=== PATIENT | male | born 1960 | race Caucasian/White ===

== ENCOUNTER 2017-01-23 09:19 | Emergency (ER) | payer SELFPAY ==
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
--- NOTE | 2017-01-23 10:27 | RADIOLOGY REPORT (SQ) ---
EXAM DESCRIPTION: CHEST PA/LAT COMPLETED DATE/TIME: 01/23/2017 10:19 am REASON FOR STUDY: pedal edema COMPARISON: None. EXAM PARAMETERS: NUMBER OF VIEWS: two views TECHNIQUE: Digital Frontal and Lateral radiographic views of the chest acquired. RADIATION DOSE: NA LIMITATIONS: none FINDINGS: LUNGS AND PLEURA: Mild chronic interstitial changes are present. There is no infiltrate o r effusion. There is no mass. MEDIASTINUM AND HILAR STRUCTURES: No masses or contour abnormalities. HEART AND VASCULAR STRUCTURES: Heart normal size. No evidence for failure. BONES: No acute findings. HARDWARE: None in the chest. OTHER: No other significant finding. IMPRESSION: Mild chronic changes with no acute cardiopulmonary disease. TECHNICAL DOCUMENTATION: JOB ID: [id number] [employer]- All Rights Reserved
[2017-01-23 11:01] LABS: ABSOLUTE LYMPHOCYTES (AUTO) 0.9 10^3/uL (0.5-4.7); ABSOLUTE MONOCYTES (AUTO) 0.5 10^3/uL (0.1-1.4); ABSOLUTE NEUT (AUTO) 1.5 10^3/uL (1.7-8.2); BASOPHILS % (AUTO) 0.5 % (0-2); EOSINOPHILS % (AUTO) 1.4 % (0-6); HEMATOCRIT 42.5 % (37.9-51.0); HEMOGLOBIN 15.3 g/dL (13.5-17.0); HGB HCT DIFFERENCE 3.4; LYMPHOCYTES % (AUTO) 30.3 % (13-45); MEAN CORPUSCULAR HEMOGLOBIN 38.3 pg (27.0-33.4); MEAN CORPUSCULAR HGB CONC 36.1 g/dL (32.0-36.0); MEAN CORPUSCULAR VOLUME 106 fl (80-97); RED BLOOD COUNT 4.01 10^6/uL (4.35-5.55); RED CELL DISTRIBUTION WIDTH 12.7 % (11.5-14.0); SEGMENTED NEUTROPHILS % (AUTO) 49.8 % (42-78)
[2017-01-23 11:05] LABS: APPEARANCE,URINE CLEAR; BILIRUBIN,URINE SMALL (NEGATIVE); GLUCOSE, URINE NEGATIVE (NEGATIVE); KETONES,URINE NEGATIVE (NEGATIVE); LEUKOCYTE ESTERASE,URINE NEGATIVE (NEGATIVE); NITRITE,URINE NEGATIVE (NEGATIVE); PROTEIN,URINE NEGATIVE (NEGATIVE); URINE SPECIFIC GRAVITY 1.025
[2017-01-23 11:09] LABS: ALANINE AMINOTRANSFERASE 54 U/L (21-72); ALBUMIN 3.8 g/dL (3.5-5.0); ALKALINE PHOSPHATASE 392 U/L (38-126); ANION GAP 9 (5-19); ASPARTATE AMINO TRANSFERASE 69 U/L (17-59); BILIRUBIN,TOTAL 1.7 mg/dL (0.2-1.3); BLOOD UREA NITROGEN 19 mg/dL (7-20); CARBON DIOXIDE 26 mmol/L (22-30); CHLORIDE 106 mmol/L (98-107); GLUCOSE 127 mg/dL (75-110); POTASSIUM 4.5 mmol/L (3.6-5.0); SODIUM 141.4 mmol/L (137-145); TOTAL PROTEIN 8.4 g/dL (6.3-8.2)
[2017-01-23 11:25] LABS: TROPONIN I < 0.012 ng/mL
[2017-01-23] MEDS ORDERED: IBUPROFEN 600 MG TABLET PO ONE (11:48)
[2017-01-23 12:00] VITALS: BP 174/78
== END 2017-01-23 12:03 | disposition home or self-care (01) ==
LOC: ER 09:19
DX: R60.0 Localized edema (principal); R74.8 Abnormal levels of other serum enzymes; M79.604 Pain in right leg; I10 Essential (primary) hypertension; F17.210 Nicotine dependence, cigarettes, uncomplicated; Z71.6 Tobacco abuse counseling
CPT/HCPCS: 36415; 71020; 80053; 81001; 83880; 84484; 85025; 99284

== ENCOUNTER 2017-07-11 11:06 | Observation (INO) | payer SELFPAY ==
[2017-07-11] MEDS ORDERED: NORMAL SALINE 1000 ML 1,000 ML IV ONE (11:12)
[2017-07-11 11:27] LABS: HEMATOCRIT 40.1 % (37.9-51.0); HEMOGLOBIN 14.2 g/dL (13.5-17.0); MEAN CORPUSCULAR HEMOGLOBIN 37.6 pg (27.0-33.4); MEAN CORPUSCULAR HGB CONC 35.4 g/dL (32.0-36.0); MEAN CORPUSCULAR VOLUME 106 fl (80-97); RED BLOOD COUNT 3.78 10^6/uL (4.35-5.55); RED CELL DISTRIBUTION WIDTH 12.7 % (11.5-14.0); WHITE BLOOD COUNT 4.5 10^3/uL (4.0-10.5)
[2017-07-11 11:29] LABS: INTERNATIONAL RATION (INR) 1.14; PROTHROMBIN TIME 15.3 SEC (11.4-15.4)
[2017-07-11 11:30] LABS: PARTIAL THROMBOPLASTIN TIME 34.9 SEC (23.5-35.8)
[2017-07-11 11:33] LABS: VENOUS BLOOD BASE EXCESS 3.8 mmol/L; VENOUS BLOOD HCO3 29.7 mmol/L (20-32); VENOUS BLOOD PCO2 49.8 mmHg (35-63); VENOUS BLOOD PH 7.39 (7.30-7.42)
[2017-07-11] MEDS ORDERED: NALOXONE HCL INJ/PF 0.4 MG/1 ML SDV IV ONE (11:43)
[2017-07-11] MEDS ORDERED: NALOXONE HCL INJ/PF 0.4 MG/1 ML SDV ONE (11:44)
[2017-07-11 11:48] LABS: ALANINE AMINOTRANSFERASE 37 U/L (21-72); ALBUMIN 3.5 g/dL (3.5-5.0); ALKALINE PHOSPHATASE 240 U/L (38-126); ASPARTATE AMINO TRANSFERASE 57 U/L (17-59); BILIRUBIN,DIRECT 1.4 mg/dL (0.0-0.4); BILIRUBIN,TOTAL 2.1 mg/dL (0.2-1.3); BLOOD UREA NITROGEN 21 mg/dL (7-20); CALCIUM 7.6 mg/dL (8.4-10.2); CARBON DIOXIDE 25 mmol/L (22-30); GLUCOSE 111 mg/dL (75-110); TOTAL PROTEIN 7.3 g/dL (6.3-8.2)
[2017-07-11 11:49] LABS: ALCOHOL 257 mg/dL (NONE DETECTED); CREATINE KINASE 54 U/L (55-170); LIPASE 317.8 U/L (23-300)
[2017-07-11 11:50] LABS: ANION GAP 10 (5-19); CHLORIDE 107 mmol/L (98-107); SODIUM 142.3 mmol/L (137-145)
[2017-07-11 11:54] LABS: ACETAMINOPHEN < 10 ug/mL (10-30); SALICYLATE < 1.0 mg/dL (2.0-20.0)
[2017-07-11 11:55] LABS: ABSOLUTE LYMPHOCYTES# (MANUAL) 1.8 10^3/uL (0.5-4.7); ABSOLUTE MONOCYTES # (MANUAL) 0.6 10^3/uL (0.1-1.4); ABSOLUTE NEUTROPHILS# (MANUAL) 1.9 10^3/uL (1.7-8.2); BAND NEUTROPHILS % (MANUAL) 2 % (3-5); BASOPHILS % (MANUAL) 2 % (0-2); EOSINOPHILS % (MANUAL) 1 % (0-6); LYMPHOCYTES % (MANUAL) 38 % (13-45); MONOCYTES % (MANUAL) 14 % (3-13); SEGMENTED NEUTROPHILS % (MAN) 41 % (42-78); TOTAL CELLS COUNTED 100
[2017-07-11] MEDS ORDERED: NALOXONE HCL INJ 2 MG/2 ML DISP.SYRIN ONE (11:55)
[2017-07-11 11:56] LABS: POTASSIUM 3.6 mmol/L (3.6-5.0)
[2017-07-11 11:58] LABS: PLATELET COMMENT DECREASED
[2017-07-11 11:59] LABS: NT PRO BNP 104 pg/mL (5-900); PLATELET COUNT 62 10^3/uL (150-450); TROPONIN I < 0.012 ng/mL
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
--- NOTE | 2017-07-11 12:03 | RADIOLOGY REPORT (SQ) ---
EXAM DESCRIPTION: CHEST SINGLE VIEW COMPLETED DATE/TIME: 07/11/2017 11:45 am REASON FOR STUDY: unresponsive COMPARISON: 01/23/2017 EXAM PARAMETERS: NUMBER OF VIEWS: One view. TECHNIQUE: Single frontal radiographic view of the chest acquired. RADIATION DOSE: NA LIMITATIONS: None. FINDINGS: LUNGS AND PLEURA: Mild chronic interstitial changes are seen. No acute infiltrate or pleu ral effusion. No mass. MEDIASTINUM AND HILAR STRUCTURES: No masses. Contour normal. HEART AND VASCULAR STRUCTURES: Heart normal in size. Normal vasculature. BONES: No acute findings. HARDWARE: None in the chest. OTHER: No other significant finding. IMPRESSION: Mild chronic lung changes with no acute cardiopulmonary disease. TECHNICAL DOCUMENTATION: JOB ID: [id number] [employer]- All Rights Reserved Reading location - IP/workstation name: [email or web address]
[2017-07-11 12:14] LABS: APPEARANCE,URINE CLEAR; BILIRUBIN,URINE NEGATIVE (NEGATIVE); COLOR,URINE STRAW; GLUCOSE, URINE NEGATIVE (NEGATIVE); KETONES,URINE NEGATIVE (NEGATIVE); LEUKOCYTE ESTERASE,URINE NEGATIVE (NEGATIVE); NITRITE,URINE NEGATIVE (NEGATIVE); PROTEIN,URINE NEGATIVE (NEGATIVE); URINE SPECIFIC GRAVITY 1.003
[2017-07-11] MEDS ORDERED: MAGNESIUM SULFATE/D5W 1 GM/100 ML RTUPB IV ONE (12:24)
[2017-07-11 12:30] LABS: URINE AMPHETAMINES SCREEN NEGATIVE; URINE BARBITURATES SCREEN NEGATIVE; URINE BENZODIAZEPINES SCREEN NEGATIVE; URINE COCAINE SCREEN NEGATIVE; URINE MARIJUANA (THC) SCREEN NEGATIVE; URINE METHADONE SCREEN NEGATIVE; URINE PHENCYCLIDINE SCREEN NEGATIVE
--- NOTE | 2017-07-11 12:45 | RADIOLOGY REPORT (SQ) ---
EXAM DESCRIPTION: CT HEAD WITHOUT COMPLETED DATE/TIME: 07/11/2017 12:31 pm REASON FOR STUDY: unresponsive cp COMPARISON: None. TECHNIQUE: Axial images acquired through the brain without intravenous contrast. Images reviewed wi th bone, brain and subdural windows. Additional sagittal and coronal reconstructions were generated. Images stored on PACS. All CT scanners at this facility use dose modulation, iterative reconstruction, and/or weight based d osing when appropriate to reduce radiation dose to as low as reasonably achievable (ALARA). [facility]: Dose Right [facility]: CareDose [facility]: Dose Right [facility]: Teradose 4D [facility]: [employer] RADIATION DOSE: CT Rad equipment meets quality standard of care and radiation dose reduction techniq ues were employed. CTDIvol: 53.2 mGy. DLP: 1097 mGy-cm. mGy. LIMITATIONS: None. FINDINGS: VENTRICLES: Normal size and contour. CEREBRUM: No masses. No hemorrhage. No midline shift. No evidence for acute infarction. Normal gra y/white matter differentiation. No areas of low density in the white matter. CEREBELLUM: No masses. No hemorrhage. No alteration of density. No evidence for acute infarction. EXTRAAXIAL SPACES: No fluid collections. No masses. ORBITS AND GLOBE: No intra- or extraconal masses. Normal contour of globe without masses. CALVARIUM: No fracture. PARANASAL SINUSES: No fluid or mucosal thickening. SOFT TISSUES: No mass or hematoma. OTHER: No other significant finding. IMPRESSION: NORMAL BRAIN CT WITHOUT CONTRAST. EVIDENCE OF ACUTE STROKE: No COMMENT: Pertinent findings on the imaging study reported as a CRITICAL RESULT to DELIA Pérez at12:30 on 07/11/2017. Category of Critical Result: CT code stroke Quality ID # [id number]: Final reports with documentation of one or more dose reduction techniques (e.g., Au tomated exposure control, adjustment of the mA and/or kV according to patient size, use of iterative reconstruction technique) TECHNICAL DOCUMENTATION: JOB ID: [id number] [employer]- All Rights Reserved Reading location - IP/workstation name: [email or web address]
--- NOTE | 2017-07-11 12:48 | RADIOLOGY REPORT (SQ) ---
EXAM DESCRIPTION: CTA CHEST COMPLETED DATE/TIME: 07/11/2017 12:31 pm REASON FOR STUDY: unresponsive cp COMPARISON: AP chest 07/11/2017 TECHNIQUE: CT scan of the chest performed using helical scanning technique with dynamic intravenous contrast injection. Images reviewed with lung, soft tissue and bone windows. Reconstructed coronal and sagittal MPR images reviewed. Additional 3 dimensional post-processing performed to develop Maximal Intensity Projection images (WA P). All images stored on PACS. All CT scanners at this facility use dose modulation, iterative reconstruction, and/or weight based d osing when appropriate to reduce radiation dose to as low as reasonably achievable (ALARA). [facility]: Dose Right [facility]: CareDose [facility]: Dose Right [facility]: Teradose 4D [facility]: [employer] CONTRAST TYPE AND DOSE: contrast/concentration: Isovue 370.00 mg/ml; Total Contrast Delivered: 77.0 ml; Total Saline Delivered: 102.0 ml Contrast bolus optimized for the pulmonary arteries. Not diagnostic for the aorta. RENAL FUNCTION: Creatinine 0.89 RADIATION DOSE: CT Rad equipment meets quality standard of care and radiation dose reduction techniq ues were employed. CTDIvol: 29.8 - 41.3 mGy. DLP: 1126 mGy-cm. . LIMITATIONS: None. FINDINGS: LUNGS AND PLEURA: Biapical bulla or blebs. No focal infiltrates. No pleural effusion. N o pneumothorax. Airway is patent. AORTA AND GREAT VESSELS: No aneurysm. Contrast bolus not optimized for the aorta. HEART: No pericardial effusion. No significant coronary artery calcifications. PULMONARY ARTERIES: No emboli visualized in the main pulmonary arteries or the segmental branches. HILAR AND MEDIASTINAL STRUCTURES: No identified masses or abnormal nodes. HARDWARE: None in the chest. UPPER ABDOMEN: Splenomegaly, varices along the GE junction and splenic hilum. Small liver. Stones i n the gallbladder. THYROID AND OTHER SOFT TISSUES: Bilateral gynecomastia. BONES: No acute bony changes 3D MIPS: Confirm above findings. OTHER: Results discussed with Dr. Montero, 1230 hours 07/11/2017 IMPRESSION: No acute findings COMMENT: Quality ID # [id number]: Final reports with documentation of one or more dose reduction techniques (e.g., Automated exposure control, adjustment of the mA and/or kV according to patient size, use of iterative reconstruction technique) TECHNICAL DOCUMENTATION: JOB ID: [id number] [employer]- All Rights Reserved Reading location - IP/workstation name: [email or web address]
[2017-07-11 14:41] LABS: FREE T4 (FREE THYROXINE) 1.22 ng/dL (0.78-2.19)
[2017-07-11 14:56] LABS: THYROID STIMULATING HORMONE 3.95 uIU/mL (0.47-4.68)
[2017-07-11 14:57] LABS: CREATINE KINASE MB 1.29 ng/mL (<4.55)
[2017-07-11 14:58] LABS: TROPONIN I < 0.012 ng/mL
[2017-07-11] MEDS: NORMAL SALINE 1000 ML 1,000 ML IV PRN ×2 (15:57→19:46)
[2017-07-11] MEDS ORDERED: THIAMINE HCL 100 MG in NORMAL SALINE 50 ML IV SCH (18:00)
[2017-07-11] MEDS ORDERED: (PENDING PHARMACY ID) (Spironolactone [Aldactone] 50 MG) PO SCH (20:30)
[2017-07-11 20:35] LABS: CREATINE KINASE MB 1.19 ng/mL (<4.55)
[2017-07-11 20:39] LABS: TROPONIN I < 0.012 ng/mL
[2017-07-11] MEDS ORDERED: SPIRONOLACTONE 25 MG TABLET PO ONE (21:00)
[2017-07-11] MEDS ORDERED: FOLIC ACID 1 MG TABLET PO ONE (21:00)
[2017-07-11] MEDS ORDERED: NADOLOL 40 MG TABLET PO ONE (21:30)
--- NOTE | 2017-07-11 22:34 | EKG REPORT ---
SEVERITY:- NORMAL ECG - SINUS RHYTHM : Confirmed by: Nadir Esquivel 11-Jul-2017 22:34:20
--- NOTE | 2017-07-11 22:34 | EKG REPORT ---
SEVERITY:- NORMAL ECG - SINUS RHYTHM : Confirmed by: Nadir Esquivel 11-Jul-2017 22:34:29
[2017-07-12 02:38] LABS: TROPONIN I < 0.012 ng/mL
[2017-07-12 06:22] LABS: ABSOLUTE LYMPHOCYTES (AUTO) 0.8 10^3/uL (0.5-4.7); ABSOLUTE MONOCYTES (AUTO) 0.5 10^3/uL (0.1-1.4); ABSOLUTE NEUT (AUTO) 1.7 10^3/uL (1.7-8.2); BASOPHILS % (AUTO) 0.7 % (0-2); EOSINOPHILS % (AUTO) 1.3 % (0-6); HEMATOCRIT 37.8 % (37.9-51.0); HEMOGLOBIN 13.4 g/dL (13.5-17.0); LYMPHOCYTES % (AUTO) 26.6 % (13-45); MEAN CORPUSCULAR HEMOGLOBIN 37.3 pg (27.0-33.4); MEAN CORPUSCULAR HGB CONC 35.4 g/dL (32.0-36.0); MEAN CORPUSCULAR VOLUME 105 fl (80-97); MONOCYTES % (AUTO) 15.4 % (3-13); RED BLOOD COUNT 3.58 10^6/uL (4.35-5.55); RED CELL DISTRIBUTION WIDTH 12.8 % (11.5-14.0); TOTAL CELLS COUNTED % (AUTO) 100 %; WHITE BLOOD COUNT 3.1 10^3/uL (4.0-10.5)
[2017-07-12 06:33] LABS: ALANINE AMINOTRANSFERASE 39 U/L (21-72); ALBUMIN 3.2 g/dL (3.5-5.0); ALKALINE PHOSPHATASE 178 U/L (38-126); AMYLASE 90 U/L (30-110); ANION GAP 5 (5-19); ASPARTATE AMINO TRANSFERASE 65 U/L (17-59); BILIRUBIN,DIRECT 1.5 mg/dL (0.0-0.4); BILIRUBIN,TOTAL 3.7 mg/dL (0.2-1.3); BLOOD UREA NITROGEN 18 mg/dL (7-20); CALCIUM 8.5 mg/dL (8.4-10.2); CARBON DIOXIDE 27 mmol/L (22-30); CHLORIDE 108 mmol/L (98-107); CHOLESTEROL 141.61 mg/dL (0-200); GLUCOSE 111 mg/dL (75-110); LIPASE 298.1 U/L (23-300); POTASSIUM 4.3 mmol/L (3.6-5.0); SODIUM 139.7 mmol/L (137-145); TOTAL PROTEIN 6.9 g/dL (6.3-8.2); TRIGLYCERIDES 113 mg/dL (<150)
[2017-07-12 06:37] LABS: INTERNATIONAL RATION (INR) 1.27; PROTHROMBIN TIME 16.7 SEC (11.4-15.4)
[2017-07-12 06:44] LABS: DIRECT LDL 78 mg/dL (<100)
[2017-07-12 06:48] LABS: PLATELET COUNT 45 10^3/uL (150-450)
[2017-07-12 07:58] LABS: PARTIAL THROMBOPLASTIN TIME 36.2 SEC (23.5-35.8)
[2017-07-12] MEDS ORDERED: FOLIC ACID 1 MG TABLET PO SCH (10:00)
[2017-07-12] MEDS ORDERED: SPIRONOLACTONE 25 MG TABLET PO SCH (10:00)
[2017-07-12] MEDS ORDERED: NADOLOL 40 MG TABLET PO SCH (10:00)
[2017-07-12 14:04] VITALS: BP 148/65
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
--- NOTE | 2017-07-12 16:02 | PDOC DISCHARGE SUMMARY ---
General - Admit/Disc Date/PCP Admission Date/Primary Care Provider: 07/11/17 13:39 Discharge Date: 07/12/17 - Discharge Diagnosis (1) Alcohol intoxication Is this a current diagnosis for this admission?: Yes (2) Syncope Is this a current diagnosis for this admission?: Yes (3) Alcoholic cirrhosis of liver Is this a current diagnosis for this admission?: Yes - Additional Information Discharge Diet: Regular Discharge Activity: Activity As Tolerated Home Medications: Folic Acid [Folvite 1 mg Tablet] 1 mg PO DAILY 07/11/17 Furosemide [Lasix 40 mg Tablet] 40 mg PO DAILY 07/11/17 Nadolol [Corgard 40 mg Tablet] 40 mg PO DAILY 07/11/17 Spironolactone [Aldactone] 50 mg PO DAILY 07/11/17 Valsartan [Diovan 160 mg Tablet] 160 mg PO DAILY 07/11/17 History of Present Illness History of Present Illness: SISSY RODGERS is a 57 year old male.He has a history of alcohol related liver cirrhosis, He continues to drink alcohol very heavily despite alcohol liver cirrhosis with stigmata of chronic liver disease. He apparently had episode of unresponsiveness, the history was that he lost consciousness on his job, CPR was started by bystanders, EMS states patient was apneic and had to be bagged there was pulse when EMS arrived, Narcan was given to patient when EMS and he responded to narcan,the pupil was small and he was transported to the hospital when he arrived in the emergency room ,he stated that he has chest pain before he collapsed because of this symptom of chest pain that preceded the loss of consciousness CTA chest was done by the ER physician there was no pulmonary embolus but it showed biapical bullae and blebs..The blood alcohol level was 257 and it is only 10 AM in the morning, this patient is a walking alcoholic Hospital Course Hospital Course: Patient was admitted for the management of syncope associated with alcohol intoxication. He has a history of alcohol liver cirrhosis complicated with esophageal varices, thrombocytopenia, ascites, mild, gynecomastia. He was treated with IV fluid admitted for observation Physical Exam Vital Signs: Temp Pulse Resp BP Pulse Ox 98.8 F 50 L 18 148/65 H 97 07/12/17 14:30 07/12/17 14:30 07/12/17 14:30 07/12/17 11:40 07/12/17 14:30 Intake & Output 07/11/17 07/12/17 07/13/17 06:59 06:59 06:59 Intake Total 1350 342 Output Total 550 Balance 800 342 Weight 95.1 kg General appearance: PRESENT: no acute distress Eye exam: PRESENT: PERRLA Respiratory exam: PRESENT: clear to auscultation samuel Cardiovascular exam: PRESENT: +S1, +S2 GI/Abdominal exam: PRESENT: soft Neurological exam: PRESENT: alert, CN II-XII grossly intact Results Laboratory Results: 07/12/17 06:04 07/12/17 06:04 07/12/17 07/12/17 06:04 06:04 WBC 3.1 L RBC 3.58 L Hgb 13.4 L Hct 37.8 L MCV 105 H MCH 37.3 H MCHC 35.4 RDW 12.8 Plt Count 45 L Seg Neutrophils % 56.0 Lymphocytes % 26.6 Monocytes % 15.4 H Eosinophils % 1.3 Basophils % 0.7 Absolute Neutrophils 1.7 Absolute Lymphocytes 0.8 Absolute Monocytes 0.5 Absolute Eosinophils 0.0 Absolute Basophils 0.0 Sodium 139.7 Potassium 4.3 Chloride 108 H Carbon Dioxide 27 Anion Gap 5 BUN 18 Creatinine 0.75 Est GFR ( Amer) > 60 Est GFR (Non-Af Amer) > 60 Glucose 111 H Calcium 8.5 Phosphorus 3.0 Magnesium 1.6 Total Bilirubin 3.7 H AST 65 H ALT 39 Alkaline Phosphatase 178 H Total Protein 6.9 Albumin 3.2 L Triglycerides 113 Cholesterol 141.61 LDL Cholesterol Direct 78 VLDL Cholesterol 23.0 HDL Cholesterol 44 Amylase 90 Lipase 298.1 07/11/17 07/11/17 07/11/17 14:12 14:12 14:12 Creatine Kinase 54 L CK-MB (CK-2) 1.29 Troponin I < 0.012 NT-Pro-B Natriuret Pep 103 07/11/17 07/11/17 07/12/17 19:50 19:50 01:56 Creatine Kinase 48 L 47 L CK-MB (CK-2) 1.19 Troponin I < 0.012 NT-Pro-B Natriuret Pep 07/12/17 01:56 Creatine Kinase CK-MB (CK-2) 0.80 Troponin I < 0.012 NT-Pro-B Natriuret Pep Impressions: Chest X-Ray 07/11/17 11:17 IMPRESSION: Mild chronic lung changes with no acute cardiopulmonary disease. Chest/Abdomen CTA 07/11/17 11:45 IMPRESSION: No acute findings Head CT 07/11/17 11:45 IMPRESSION: NORMAL BRAIN CT WITHOUT CONTRAST. EVIDENCE OF ACUTE STROKE: No Qualifiers - * PATEINT BEING DISCHARGED WITH ANY OF THE FOLLOWING DIAGNOSIS?: No VTE patient discharged on overlapping Therapy?: Yes
== END 2017-07-12 15:20 | disposition home or self-care (01) ==
LOC: ER 11:06 → OBSVTOIN 13:39 → INTOOBSV 13:39 → EH 13:39 → 3N 18:11
PROVIDERS: ADMIT Internal Medicine; ATTEND Internal Medicine
DX: R55 Syncope and collapse (principal); K70.30 Alcoholic cirrhosis of liver without ascites; F10.120 Alcohol abuse with intoxication, uncomplicated; R07.9 Chest pain, unspecified; I10 Essential (primary) hypertension; J44.9 Chronic obstructive pulmonary disease, unspecified; F17.210 Nicotine dependence, cigarettes, uncomplicated
CPT/HCPCS: 93005; 99291; 96361; 96375; 96365; 36415 ×2; 84439; 82553 ×2; 80307 ×4; 82140; 82150; 82550 ×2; 83605; 83690 ×2; 83735 ×2; 84100; 84443; 85025 ×2; 85610 ×2; 85730 ×2; 80076; 80048; 80053; 81001; 84484 ×2; 83036; 82803; 80061; 83880; 71045; 70450; 71275; 93010; G0378 ×3; J3490 ×2; J2310; J3475; J3411; J7030

== ENCOUNTER 2017-10-11 21:56 | Inpatient (IN) | payer SELFPAY ==
[2017-10-11] MEDS ORDERED: KETOROLAC TROMETHAMINE INJ/PF 30 MG/1 ML SDV IV ONE (22:39)
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
[2017-10-11 23:02] LABS: HEMATOCRIT 36.7 % (37.9-51.0); HEMOGLOBIN 13.1 g/dL (13.5-17.0); MEAN CORPUSCULAR HEMOGLOBIN 38.1 pg (27.0-33.4); MEAN CORPUSCULAR HGB CONC 35.9 g/dL (32.0-36.0); MEAN CORPUSCULAR VOLUME 106 fl (80-97); RED BLOOD COUNT 3.45 10^6/uL (4.35-5.55); RED CELL DISTRIBUTION WIDTH 12.7 % (11.5-14.0); WHITE BLOOD COUNT 10.9 10^3/uL (4.0-10.5)
[2017-10-11 23:06] LABS: ALANINE AMINOTRANSFERASE 27 U/L (21-72); ALKALINE PHOSPHATASE 133 U/L (38-126); ANION GAP 10 (5-19); ASPARTATE AMINO TRANSFERASE 32 U/L (17-59); BILIRUBIN,DIRECT 0.9 mg/dL (0.0-0.4); BILIRUBIN,TOTAL 2.1 mg/dL (0.2-1.3); BLOOD UREA NITROGEN 54 mg/dL (7-20); CALCIUM 9.5 mg/dL (8.4-10.2); CARBON DIOXIDE 17 mmol/L (22-30); CHLORIDE 111 mmol/L (98-107); GLUCOSE 112 mg/dL (75-110); POTASSIUM 5.7 mmol/L (3.6-5.0); TOTAL PROTEIN 8.4 g/dL (6.3-8.2)
[2017-10-11 23:29] LABS: ABSOLUTE LYMPHOCYTES# (MANUAL) 0.4 10^3/uL (0.5-4.7); ABSOLUTE MONOCYTES # (MANUAL) 0.4 10^3/uL (0.1-1.4); BAND NEUTROPHILS % (MANUAL) 4 % (3-5); BASOPHILS % (MANUAL) 0 % (0-2); EOSINOPHILS % (MANUAL) 0 % (0-6); LYMPHOCYTES % (MANUAL) 4 % (13-45); MONOCYTES % (MANUAL) 4 % (3-13); SEGMENTED NEUTROPHILS % (MAN) 88 % (42-78); TOTAL CELLS COUNTED 100
[2017-10-11 23:31] LABS: PLATELET CLUMPS PRESENT; PLATELET COMMENT DECREASED
[2017-10-11 23:32] LABS: RBC MORPHOLOGY COMMENT NORMO-CYTIC/CHROMIC
[2017-10-11 23:33] LABS: PLATELET COUNT 59 10^3/uL (150-450)
[2017-10-11] MEDS ORDERED: DEXTROSE 50%-WATER 25 GM/50 ML DISP.SYRIN IV ONE (23:37)
[2017-10-11] MEDS ORDERED: CALCIUM GLUCONATE 1000 MG/10 ML INJ IV ONE (23:37)
[2017-10-11] MEDS ORDERED: INSULIN REG, HUMAN 100 UNIT/ML 3 ML VIAL (PYX) IV ONE (23:37)
[2017-10-11] MEDS ORDERED: VANCOMYCIN HCL INJ 1000 MG VIAL IV ONE (23:41)
[2017-10-12] MEDS ORDERED: CEFTRIAXONE INJ 1000 MG VIAL IV ONE (00:08)
[2017-10-12 00:20] LABS: INTERNATIONAL RATION (INR) 1.19; PROTHROMBIN TIME 15.7 SEC (11.4-15.4)
[2017-10-12 00:21] LABS: PARTIAL THROMBOPLASTIN TIME 33.7 SEC (23.5-35.8)
[2017-10-12] MEDS ORDERED: ENOXAPARIN SODIUM INJ 100 MG/1 ML DISP.SYRIN SUBCUT ONE (00:38)
[2017-10-12] MEDS ORDERED: TRAMADOL HCL 50 MG TABLET PO PRN ×2 (03:35→19:06)
[2017-10-12] MEDS: CLINDAMYCIN 600 MG/D5W RTU 600 MG/50 ML RTUPB IV SCH ×3 (05:05→21:51)
[2017-10-12] MEDS ORDERED: NORMAL SALINE 1000 ML 1,000 ML IV PRN (05:39)
[2017-10-12 06:27] LABS: ABSOLUTE LYMPHOCYTES (AUTO) 1.1 10^3/uL (0.5-4.7); ABSOLUTE MONOCYTES (AUTO) 1.2 10^3/uL (0.1-1.4); BASOPHILS % (AUTO) 0.3 % (0-2); EOSINOPHILS % (AUTO) 0.1 % (0-6); HEMATOCRIT 32.9 % (37.9-51.0); HEMOGLOBIN 11.8 g/dL (13.5-17.0); MEAN CORPUSCULAR HEMOGLOBIN 37.9 pg (27.0-33.4); MEAN CORPUSCULAR HGB CONC 35.8 g/dL (32.0-36.0); MEAN CORPUSCULAR VOLUME 106 fl (80-97); MONOCYTES % (AUTO) 12.7 % (3-13); RED BLOOD COUNT 3.11 10^6/uL (4.35-5.55); RED CELL DISTRIBUTION WIDTH 12.7 % (11.5-14.0); SEGMENTED NEUTROPHILS % (AUTO) 74.9 % (42-78); TOTAL CELLS COUNTED % (AUTO) 100 %; WHITE BLOOD COUNT 9.3 10^3/uL (4.0-10.5)
[2017-10-12 06:44] LABS: ALANINE AMINOTRANSFERASE 28 U/L (21-72); ALBUMIN 3.4 g/dL (3.5-5.0); ALKALINE PHOSPHATASE 85 U/L (38-126); ANION GAP 9 (5-19); ASPARTATE AMINO TRANSFERASE 25 U/L (17-59); BILIRUBIN,TOTAL 2.4 mg/dL (0.2-1.3); BLOOD UREA NITROGEN 53 mg/dL (7-20); CALCIUM 9.3 mg/dL (8.4-10.2); CARBON DIOXIDE 18 mmol/L (22-30); CHLORIDE 110 mmol/L (98-107); GLUCOSE 109 mg/dL (75-110); POTASSIUM 5.2 mmol/L (3.6-5.0); SODIUM 137.3 mmol/L (137-145); TOTAL PROTEIN 7.3 g/dL (6.3-8.2)
--- NOTE | 2017-10-12 06:54 | RADIOLOGY REPORT (SQ) ---
EXAM DESCRIPTION: US RETROPERITONEUM COMPLETED DATE/TME: 10/12/2017 06:00 CLINICAL HISTORY: 57 years Male, Acute Renal Failure Comparison: CT, 8.6.15 LIMITATIONS: None. FINDINGS: 11-cm right kidney, 11-cm left kidney, and urinary bladder with demonstrated bilateral ureteral jet flow appear otherwise of normal size, shape, echotexture, and vascularity. IMPRESSION: Normal renal sonogram.
[2017-10-12 06:57] LABS: PLATELET COUNT 52 10^3/uL (150-450)
--- NOTE | 2017-10-12 07:29 | EKG REPORT ---
SEVERITY:- BORDERLINE ECG - SINUS RHYTHM PROBABLE LEFT ATRIAL ABNORMALITY : Confirmed by: Dieter Hackett MD 12-Oct-2017 07:29:00
--- NOTE | 2017-10-12 14:33 | RADIOLOGY REPORT (SQ) ---
EXAM DESCRIPTION: VENOUS UNILATERAL LOWER COMPLETED DATE/TIME: 10/12/2017 1:55 pm REASON FOR STUDY: RLE swelling COMPARISON: None. TECHNIQUE: Dynamic and static zavala scale and color images acquired of the right leg venous system. S elected spectral images acquired with additional compression and augmentation maneuvers. The contrala teral common femoral vein and saphenofemoral junction were also imaged. Images stored on PACS. LIMITATIONS: None. FINDINGS: RIGHT COMMON FEMORAL: Normal phasicity, compression and augmentation. No visualized echogenic material on g ray scale. No defects on color images. FEMORAL: Normal compression and augmentation. No visualized echogenic material on zavala scale. No defe cts on color images. POPLITEAL: Normal compression, augmentation. No visualized echogenic material on zavala scale. No defec ts on color images. CALF VESSELS: Normal compression, augmentation. No visualized echogenic material on zavala scale. No de fects on color images. GSV and SSV: Normal compression, augmentation. No visualized echogenic material on zavala scale. No def ects on color images. ANY DEEP VENOUS INSUFFICIENCY: Not evaluated. ANY EVIDENCE OF POPLITEAL CYST: No. OTHER: No other significant finding. LEFT COMMON FEMORAL VEIN AND SAPHENOFEMORAL JUNCTION: Normal phasicity, compression and augmentation. No visualized echogenic material on zavala scale. No de fects on color images. IMPRESSION: NO EVIDENCE OF DVT OR SVT IN THE RIGHT LEG. TECHNICAL DOCUMENTATION: JOB ID: [id number] [employer]- All Rights Reserved Reading location - IP/workstation name: [email or web address]
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
--- NOTE | 2017-10-12 20:29 | PDOC DISCHARGE SUMMARY ---
General - Admit/Disc Date/PCP Admission Date/Primary Care Provider: 10/12/17 00:43 KWAKU CUELLO MD Discharge Date: 10/13/17 - Discharge Diagnosis (1) Cellulitis of right leg Is this a current diagnosis for this admission?: Yes (2) Acute kidney injury Is this a current diagnosis for this admission?: Yes - Additional Information Resuscitation Status: Full Code Prescriptions: Clindamycin HCl 300 mg PO Q6H #21 capsule Home Medications: Folic Acid [Folvite 1 mg Tablet] 1 mg PO DAILY 07/11/17 Furosemide [Lasix 40 mg Tablet] 40 mg PO DAILY 07/11/17 Nadolol [Corgard 40 mg Tablet] 40 mg PO DAILY 07/11/17 Spironolactone [Aldactone] 50 mg PO DAILY 07/11/17 Valsartan [Diovan 160 mg Tablet] 160 mg PO DAILY 07/11/17 Clindamycin HCl 300 mg PO Q6H #21 capsule 10/12/17 Ergocalciferol (Vitamin D2) [Drisdol 50,000 unit (1.25MG) Capsule] 50,000 unit PO WE@1000 10/12/17 Multivitamin [Daily Multiple Vitamin] 1 each PO DAILY 10/12/17 Thiamine HCl [Vitamin B-1] 100 mg PO DAILY 10/12/17 Tramadol HCl 50 mg PO Q8HP PRN 10/12/17 Physical Exam Vital Signs: Temp Pulse Resp BP Pulse Ox 99.3 F 63 24 H 127/60 H 100 10/12/17 19:22 10/12/17 19:22 10/12/17 19:22 10/12/17 19:22 10/12/17 19:22 Intake & Output 10/11/17 10/12/17 10/13/17 06:59 06:59 06:59 Intake Total 50 1520 Output Total 300 850 Balance -250 670 Weight 92.3 kg Results Laboratory Results: 10/12/17 06:05 10/12/17 06:05 10/12/17 10/12/17 06:05 06:05 WBC 9.3 RBC 3.11 L Hgb 11.8 L Hct 32.9 L MCV 106 H MCH 37.9 H MCHC 35.8 RDW 12.7 Plt Count 52 L Seg Neutrophils % 74.9 Lymphocytes % 12.0 L Monocytes % 12.7 Eosinophils % 0.1 Basophils % 0.3 Absolute Neutrophils 7.0 Absolute Lymphocytes 1.1 Absolute Monocytes 1.2 Absolute Eosinophils 0.0 Absolute Basophils 0.0 Sodium 137.3 Potassium 5.2 H Chloride 110 H Carbon Dioxide 18 L Anion Gap 9 BUN 53 H Creatinine 1.49 H Est GFR ( Amer) 59 L Est GFR (Non-Af Amer) 48 L Glucose 109 Calcium 9.3 Total Bilirubin 2.4 H AST 25 ALT 28 Alkaline Phosphatase 85 Total Protein 7.3 Albumin 3.4 L Impressions: Venous Doppler Study 10/12/17 00:39 IMPRESSION: NO EVIDENCE OF DVT OR SVT IN THE RIGHT LEG. Renal Ultrasound 10/12/17 06:00 IMPRESSION: Normal renal sonogram.
[2017-10-13] MEDS: CLINDAMYCIN 600 MG/D5W RTU 600 MG/50 ML RTUPB IV SCH (05:45)
[2017-10-13 08:04] VITALS: BP 101/52
[2017-10-13] MEDS ORDERED: NADOLOL 40 MG TABLET PO SCH (10:00)
[2017-10-13] MEDS ORDERED: (PENDING PHARMACY ID) (Spironolactone [Aldactone] 50 MG) PO SCH (10:00)
[2017-10-13] MEDS ORDERED: THIAMINE HCL 100 MG TABLET PO SCH (10:00)
[2017-10-13] MEDS ORDERED: FUROSEMIDE 40 MG TABLET PO SCH (10:00)
[2017-10-13] MEDS ORDERED: (PENDING PHARMACY ID) (Thiamine Hcl [Vitamin B-1] 100 MG) PO SCH (10:00)
[2017-10-13] MEDS ORDERED: SPIRONOLACTONE 25 MG TABLET PO SCH (10:00)
[2017-10-13] MEDS ORDERED: FOLIC ACID 1 MG TABLET PO SCH (10:00)
[2017-10-13] MEDS ORDERED: VALSARTAN 160 MG TABLET PO SCH (10:00)
[2017-10-13] MEDS ORDERED: MULTIVITAMIN TABLET PO SCH (10:00)
[2017-10-18] MEDS ORDERED: ERGOCALCIFEROL (VITAMIN D2) 50000 UNIT (1.25 MG) CAPSULE PO SCH (10:00)
== END 2017-10-13 09:50 | disposition home or self-care (01) | DRG 603 ==
LOC: ER 21:56 → EH 10-12 00:43 → 3W 10-12 02:28
PROVIDERS: ADMIT Internal Medicine; ATTEND Internal Medicine
DX: L03.115 Cellulitis of right lower limb (principal); N17.9 Acute kidney failure, unspecified; E87.5 Hyperkalemia; K70.30 Alcoholic cirrhosis of liver without ascites; B18.2 Chronic viral hepatitis C; F10.20 Alcohol dependence, uncomplicated; Z87.891 Personal history of nicotine dependence; I50.9 Heart failure, unspecified; I11.0 Hypertensive heart disease with heart failure; J44.9 Chronic obstructive pulmonary disease, unspecified; Z87.828 Personal history of other (healed) physical injury and trauma; Z83.2 Family history of diseases of the blood and blood-forming organs and certain disorders involving the immune mechanism
CPT/HCPCS: 36415; 76770; 80053; 85025; 85610; 85730; 93005; 93010; 93971; 96374; 96375; 99285; J0610; J0696; J1650; J1815; J3370; J3490; J7030

== ENCOUNTER → 2017-12-07 | Outpatient (CLI) | payer OTHER ==
[2017-12-07 11:02] LABS: APPEARANCE,URINE CLEAR; BILIRUBIN,URINE NEGATIVE (NEGATIVE); COLOR,URINE YELLOW; GLUCOSE, URINE NEGATIVE (NEGATIVE); KETONES,URINE NEGATIVE (NEGATIVE); LEUKOCYTE ESTERASE,URINE NEGATIVE (NEGATIVE); NITRITE,URINE NEGATIVE (NEGATIVE); PROTEIN,URINE NEGATIVE (NEGATIVE); URINE SPECIFIC GRAVITY 1.006; UROBILINOGEN,URINE NEGATIVE mg/dL (<2.0)
[2017-12-07 11:10] LABS: ABSOLUTE LYMPHOCYTES (AUTO) 1.1 10^3/uL (0.5-4.7); ABSOLUTE MONOCYTES (AUTO) 0.6 10^3/uL (0.1-1.4); ABSOLUTE NEUT (AUTO) 2.1 10^3/uL (1.7-8.2); BASOPHILS % (AUTO) 0.2 % (0-2); HEMATOCRIT 33.2 % (37.9-51.0); HEMOGLOBIN 11.9 g/dL (13.5-17.0); LYMPHOCYTES % (AUTO) 28.9 % (13-45); MEAN CORPUSCULAR HGB CONC 35.8 g/dL (32.0-36.0); MEAN CORPUSCULAR VOLUME 106 fl (80-97); MONOCYTES % (AUTO) 14.6 % (3-13); RED BLOOD COUNT 3.14 10^6/uL (4.35-5.55); RED CELL DISTRIBUTION WIDTH 13.3 % (11.5-14.0); SEGMENTED NEUTROPHILS % (AUTO) 55.3 % (42-78); TOTAL CELLS COUNTED % (AUTO) 100 %; WHITE BLOOD COUNT 3.9 10^3/uL (4.0-10.5)
[2017-12-07 11:38] LABS: PLATELET COUNT 68 10^3/uL (150-450)
[2017-12-07 12:15] LABS: ALANINE AMINOTRANSFERASE 33 U/L (21-72); ALBUMIN 3.7 g/dL (3.5-5.0); ALKALINE PHOSPHATASE 160 U/L (38-126); ANION GAP 9 (5-19); ASPARTATE AMINO TRANSFERASE 44 U/L (17-59); BILIRUBIN,DIRECT 0.6 mg/dL (0.0-0.4); BILIRUBIN,TOTAL 1.6 mg/dL (0.2-1.3); BLOOD UREA NITROGEN 23 mg/dL (7-20); CALCIUM 9.7 mg/dL (8.4-10.2); CARBON DIOXIDE 26 mmol/L (22-30); CHLORIDE 107 mmol/L (98-107); CHOLESTEROL 143.07 mg/dL (0-200); GLUCOSE 103 mg/dL (75-110); POTASSIUM 4.8 mmol/L (3.6-5.0); SODIUM 141.6 mmol/L (137-145); TOTAL PROTEIN 7.8 g/dL (6.3-8.2); TRIGLYCERIDES 73 mg/dL (<150)
[2017-12-07 12:26] LABS: DIRECT LDL 65 mg/dL (<100)
[2017-12-07 12:40] LABS: FREE T4 (FREE THYROXINE) 1.16 ng/dL (0.78-2.19)
[2017-12-07 12:54] LABS: THYROID STIMULATING HORMONE 4.19 uIU/mL (0.47-4.68)
--- NOTE | 2017-12-07 13:48 | RADIOLOGY REPORT (SQ) ---
EXAM DESCRIPTION: KNEE LEFT 4 VIEW COMPLETED DATE/TIME: 12/07/2017 12:23 pm REASON FOR STUDY: PAIN IN LEFT KNEE K70.30 ALCOHOLIC CIRRHOSIS OF LIVER WITHOUT ASCITES COMPARISON: None. NUMBER OF VIEWS: Four views. TECHNIQUE: AP, lateral, and both oblique radiographic images acquired of the left knee. LIMITATIONS: None. FINDINGS: MINERALIZATION: Normal. BONES: No acute fracture or dislocation. No worrisome bone lesions. JOINT: No effusion. SOFT TISSUES: No soft tissue swelling. No radio-opaque foreign body. OTHER: No other significant finding. IMPRESSION: NEGATIVE STUDY OF THE LEFT KNEE. NO RADIOGRAPHIC EVIDENCE OF ACUTE INJURY. TECHNICAL DOCUMENTATION: JOB ID: [id number] [employer]- All Rights Reserved Reading location - IP/workstation name: [email or web address]
== END ==
LOC: LAB 10:22
PROVIDERS: ATTEND Internal Medicine
DX: K70.30 Alcoholic cirrhosis of liver without ascites (principal); M25.562 Pain in left knee; M25.561 Pain in right knee
CPT/HCPCS: 36415; 80053; 80061; 81001; 84439; 84443; 84550; 85025

== ENCOUNTER → 2018-06-01 | Outpatient (CLI) | payer OTHER ==
[2018-06-01 11:26] LABS: INTERNATIONAL RATION (INR) 1.15; PROTHROMBIN TIME 15.3 SEC (11.4-15.4)
[2018-06-01 11:39] LABS: ALANINE AMINOTRANSFERASE 21 U/L (21-72); ALKALINE PHOSPHATASE 145 U/L (38-126); ANION GAP 8 (5-19); ASPARTATE AMINO TRANSFERASE 53 U/L (17-59); BILIRUBIN,DIRECT 0.6 mg/dL (0.0-0.4); BILIRUBIN,TOTAL 1.2 mg/dL (0.2-1.3); BLOOD UREA NITROGEN 18 mg/dL (7-20); CALCIUM 9.7 mg/dL (8.4-10.2); CARBON DIOXIDE 25 mmol/L (22-30); CHLORIDE 107 mmol/L (98-107); GLUCOSE 111 mg/dL (75-110); POTASSIUM 4.6 mmol/L (3.6-5.0); SODIUM 140.2 mmol/L (137-145); TOTAL PROTEIN 7.8 g/dL (6.3-8.2)
== END ==
LOC: OD 10:02
DX: I10 Essential (primary) hypertension (principal); M19.90 Unspecified osteoarthritis, unspecified site; N28.9 Disorder of kidney and ureter, unspecified; K76.9 Liver disease, unspecified
CPT/HCPCS: 36415; 80053; 85610

== ENCOUNTER → 2018-06-29 | Outpatient (CLI) | payer OTHER ==
--- NOTE | 2018-06-29 11:03 | RADIOLOGY REPORT (SQ) ---
EXAM DESCRIPTION: HIP LEFT AP/LATERAL COMPLETED DATE/TIME: 06/29/2018 10:55 am REASON FOR STUDY: PAIN IN LEFT HIP M25.552 PAIN IN LEFT HIP COMPARISON: None. NUMBER OF VIEWS: Two views. TECHNIQUE: AP pelvis and additional frog-leg view of the left hip. LIMITATIONS: None. FINDINGS: MINERALIZATION: Normal LEFT HIP: No fracture or dislocation. No suspicious osseous lesions. Mild osteophytosis. Joint spa ce is maintained. Degenerative RIGHT HIP: No fracture or dislocation. No worrisome bone lesions. Mild osteophytosis. Joint space maintained pre PUBIS AND ISCHIUM: No fracture. SACRUM: No fracture or dislocation. No worrisome bone lesions. LOWER LUMBAR SPINE: No fracture or dislocation. No worrisome bone lesions. No significant disc disea se. SOFT TISSUES: Scattered pelvic phleboliths. OTHER: No other significant finding. IMPRESSION: No evidence of acute bony abnormality. No significant degenerative change. TECHNICAL DOCUMENTATION: JOB ID: [id number] [employer]- All Rights Reserved Reading location - IP/workstation name: [email or web address]
== END ==
LOC: RAD 10:35
PROVIDERS: ATTEND Internal Medicine
DX: M25.552 Pain in left hip (principal)

== ENCOUNTER → 2018-07-18 | Outpatient (CLI) | payer OTHER ==
--- NOTE | 2018-07-19 08:07 | XCELERA REPORT ---
[address] [address] Lower Extremity Arterial Evaluation Name: SISSY RODGERS Age: 58 yrs Gender: Male : 1960 Patient Status: Outpatient Patient Location: [facility] Study Date: 07/18/2018 09:12 AM Procedure: A color flow and duplex scan of the lower extremity arteries was performed bilaterally with velocity and waveform anaylsis. Reason For Study: PVD Ordering Physician: KWAKU CUELLO Performed By: Froilan Babb Measurements and Calculations Right Left HIGH RISK OB PSV 138.3 124.3 cm/sec Prox PFA PSV -103.1 -113.1cm/sec Prox SFA PSV 102.0 115.9 cm/sec Mid SFA PSV -130.6 -140.4cm/sec Dist SFA PSV -102.0 -123.2cm/sec Prox Pop A PSV 94.8 89.3 cm/sec Dist BELKIS PSV 97.7 108.7 cm/sec Dist ERECTING ENGINEER PSV 112.9 196.4 cm/sec Prince Pedis PSV 104.6 35.8 cm/sec Right Side Arterial Evaluation Normal velocity and triphasic waveforms noted from the Common Femoral artery to the infrageniculate vessels . Ankle Brachial index declined. Left Side Arterial Evaluation Increased velocity, less than 2 x adjacent, in Posterior Tibial. Otherwise normal velocity and triphasic waveforms noted from the Common Femoral artery to the infrageniculate vessels . Ankle Brachial index declined. Interpretation Summary No hemodynamically significant lesions in the right lower extremity only, on duplex imaging, at rest. Mild hemodynamically significant lesions in the left lower extremity only, on duplex imaging, at rest. Quite normal, bilaterally, except for focal finding in left Posterior Tibial artery. Consistent with less than 50% stenosis. : KWAKU CUELLO > Onofre Phoenix
== END ==
LOC: SP 08:44
PROVIDERS: ATTEND Internal Medicine
DX: I73.9 Peripheral vascular disease, unspecified (principal)
CPT/HCPCS: 93925

== ENCOUNTER 2018-10-22 13:13 | Observation (INO) | payer OTHER ==
[2018-10-22] MEDS: NORMAL SALINE 250 ML with FUROSEMIDE 250 MG IV PRN ×2 (14:45)
[2018-10-22 15:26] LABS: ABSOLUTE LYMPHOCYTES (AUTO) 1.1 10^3/uL (0.5-4.7); ABSOLUTE MONOCYTES (AUTO) 0.6 10^3/uL (0.1-1.4); ABSOLUTE NEUT (AUTO) 1.3 10^3/uL (1.7-8.2); BASOPHILS % (AUTO) 0.2 % (0-2); EOSINOPHILS % (AUTO) 0.9 % (0-6); HEMATOCRIT 33.7 % (37.9-51.0); HEMOGLOBIN 12.1 g/dL (13.5-17.0); MEAN CORPUSCULAR HEMOGLOBIN 38.6 pg (27.0-33.4); MEAN CORPUSCULAR VOLUME 107 fl (80-97); MONOCYTES % (AUTO) 19.8 % (3-13); RED BLOOD COUNT 3.14 10^6/uL (4.35-5.55); RED CELL DISTRIBUTION WIDTH 13.3 % (11.5-14.0); SEGMENTED NEUTROPHILS % (AUTO) 43.1 % (42-78); TOTAL CELLS COUNTED % (AUTO) 100 %; WHITE BLOOD COUNT 3.1 10^3/uL (4.0-10.5)
[2018-10-22 15:31] LABS: UR PRO/CREAT RATIO RESULT 0.3 mg/mg (0.0-0.2); URINE PROTEIN 9.9 mg/dL (<12)
[2018-10-22 15:41] LABS: APPEARANCE,URINE CLEAR; BILIRUBIN,URINE NEGATIVE (NEGATIVE); COLOR,URINE YELLOW; GLUCOSE, URINE NEGATIVE (NEGATIVE); KETONES,URINE NEGATIVE (NEGATIVE); LEUKOCYTE ESTERASE,URINE NEGATIVE (NEGATIVE); NITRITE,URINE NEGATIVE (NEGATIVE); PROTEIN,URINE NEGATIVE (NEGATIVE); URINE SPECIFIC GRAVITY 1.006; UROBILINOGEN,URINE NEGATIVE mg/dL (<2.0)
[2018-10-22 15:42] LABS: ALANINE AMINOTRANSFERASE 29 U/L (21-72); ALBUMIN 3.2 g/dL (3.5-5.0); ALKALINE PHOSPHATASE 132 U/L (38-126); ANION GAP 5 (5-19); ASPARTATE AMINO TRANSFERASE 43 U/L (17-59); BILIRUBIN,DIRECT 0.7 mg/dL (0.0-0.4); BILIRUBIN,TOTAL 2.2 mg/dL (0.2-1.3); BLOOD UREA NITROGEN 24 mg/dL (7-20); CALCIUM 9.3 mg/dL (8.4-10.2); CARBON DIOXIDE 28 mmol/L (22-30); CHLORIDE 102 mmol/L (98-107); GLUCOSE 102 mg/dL (75-110); POTASSIUM 4.3 mmol/L (3.6-5.0); SODIUM 135.1 mmol/L (137-145); TOTAL PROTEIN 6.9 g/dL (6.3-8.2)
[2018-10-22 15:50] LABS: PLATELET COUNT 61 10^3/uL (150-450)
[2018-10-22 15:57] LABS: FREE T4 (FREE THYROXINE) 1.18 ng/dL (0.78-2.19)
[2018-10-22 16:11] LABS: THYROID STIMULATING HORMONE 3.34 uIU/mL (0.47-4.68)
[2018-10-23 00:41] VITALS: BP 107/52
[2018-10-23] MEDS: NORMAL SALINE 250 ML with FUROSEMIDE 250 MG IV PRN ×2 (03:42)
[2018-10-23] MEDS ORDERED: FUROSEMIDE 40 MG TABLET PO SCH (10:00)
--- NOTE | 2018-10-23 13:41 | XCELERA REPORT ---
[address] [address] Transthoracic Echocardiogram Report Name: SISSY RODGERS Age: 58 yrs Gender: Male : 1960 Patient Status: Inpatient Patient Location: [facility]^A Study Date: 10/22/2018 03:13 PM Height: 71 in Weight: 229 lb BSA: 2.2 m2 Procedure: A two-dimensional transthoracic echocardiogram with color flow and Doppler was performed. The study was technically difficult with many images being suboptimal in quality. Reason For Study: Anasarea History: Anasarea. Ordering Physician: KWAKU CUELLO Performed By: Ellie Barahona Interpretation Summary The left ventricle is normal in size. There is normal left ventricular wall thickness. The left ventricular ejection fraction is within normal limits. LV EF is 70% Doppler measurements suggest normal left ventricular diastolic function The left ventricular wall motion is normal. There is no thrombus. No ASD ,VSD,or PFO seen. The right ventricle is not well visualized secondary to technical limitations The right atrium is normal. The left atrium is mildly dilated. There is mild mitral annular calcification. There is no evidence of mitral valve prolapse. There is no vegetation seen on the mitral valve. There is no mitral valve stenosis. There is no mitral regurgitation noted. There is aortic sclerosis without aortic stenosis. There is no LVOT obstruction. No aortic regurgitation is present. There is no tricuspid stenosis. There is a trace amount of tricuspid regurgitation Right ventricular systolic pressure is at the upper limits of normal RVSP is 25 to 30mm of Hg , wit RA mean of 5 to 20. There is no pulmonic valvular stenosis. There is no pulmonic valvular regurgitation. The aortic root is normal size. The inferior vena cava appeared normal and decreased > 50% with respiration (RAP 5-10 mmHg) There is no pericardial effusion. MMode/2D Measurements & Calculations RVDd: 3.7 cm LVIDd: 5.3 cm FS: 39.0 % Ao root diam: 2.6 cm IVSd: 1.1 cm LVIDs: 3.2 cm EDV(Teich): 135.3 ml Ao root area: 5.3 cm2 LVPWd: 1.1 cm ESV(Teich): 42.0 ml LA dimension: 4.3 cm EF(Teich): 68.9 % Doppler Measurements & Calculations MV E max maddi: MV P1/2t max maddi: Ao V2 max: LV V1 max P.1 cm/sec 113.3 cm/sec 131.2 cm/sec 5.1 mmHg MV A max maddi: MV P1/2t: 56.3 msec Ao max P.9 mmHgLV V1 max: 83.7 cm/sec MVA(P1/2t): 3.9 cm2 112.5 cm/sec MV E/A: 1.4 MV dec slope: 589.7 cm/sec2 MV dec time: 0.19 sec PA V2 max: TR max maddi: MV P1/2t-pr_phl: 103.7 cm/sec 224.9 cm/sec 57.1 msec PA max P.3 mmHgTR max P.2 mmHg Left Ventricle The left ventricle is normal in size. There is normal left ventricular wall thickness. The left ventricular ejection fraction is within normal limits. LV EF is 70%. Doppler measurements suggest normal left ventricular diastolic function. The left ventricular wall motion is normal. There is no thrombus. No ASD ,VSD,or PFO seen. Right Ventricle The right ventricle is not well visualized secondary to technical limitations. Atria The right atrium is normal. The left atrium is mildly dilated. Mitral Valve There is mild mitral annular calcification. There is no evidence of mitral valve prolapse. There is no vegetation seen on the mitral valve. There is no mitral valve stenosis. There is no mitral regurgitation noted. Aortic Valve There is no aortic valvular vegetation. There is aortic sclerosis without aortic stenosis. There is no LVOT obstruction. No aortic regurgitation is present. Tricuspid Valve There is no tricuspid stenosis. There is a trace amount of tricuspid regurgitation. Right ventricular systolic pressure is at the upper limits of normal. RVSP is 25 to 30mm of Hg , wit RA mean of 5 to 20. Pulmonic Valve There is no pulmonic valvular stenosis. There is no pulmonic valvular regurgitation. Great Vessels The aortic root is normal size. The inferior vena cava appeared normal and decreased > 50% with respiration (RAP 5-10 mmHg). Effusions There is no pericardial effusion. : KWAKU CUELLO > Rosa Arreguin
[2018-10-23] MEDS ORDERED: PHARMACY COMMUNICATION ORDER MC SCH (18:00)
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
--- NOTE | 2018-10-23 20:47 | PDOC DISCHARGE SUMMARY ---
General - Admit/Disc Date/PCP Admission Date/Primary Care Provider: 10/22/18 13:13 KWAKU CUELLO MD Discharge Date: 10/23/18 - Discharge Diagnosis (1) Anasarca Is this a current diagnosis for this admission?: Yes (2) Alcoholic cirrhosis of liver Is this a current diagnosis for this admission?: Yes - Additional Information Discharge Activity: Activity As Tolerated Home Medications: RX: Folic Acid [Folvite 1 mg Tablet] 1 mg PO DAILY 07/11/17 RX: Furosemide [Lasix 40 mg Tablet] 40 mg PO DAILY 07/11/17 RX: Nadolol [Corgard 40 mg Tablet] 40 mg PO DAILY 07/11/17 RX: Spironolactone [Aldactone] 50 mg PO DAILY 07/11/17 RX: Valsartan [Diovan 160 mg Tablet] 160 mg PO DAILY 07/11/17 RX: Ergocalciferol (Vitamin D2) [Drisdol 50,000 unit (1.25MG) Capsule] 50,000 unit PO WE@1000 10/12/17 RX: Thiamine HCl [Vitamin B-1] 100 mg PO DAILY 10/12/17 History of Present Illness History of Present Illness: SISSY RODGERS is a 58 year old male,He has alcohol liver cirrhosis, he came to the office for evaluation of increased swelling of both lower extremities he has tremendous anasarca. He was admitted for observation and evaluation of his symptoms a 2D echo was done, it demonstrated preserved ejection fraction of left ventricle, he was diuresed with Lasix infusion for 24 hours Hospital Course Hospital Course: Patient was admitted for observation, he was treated with furosemide infusion, he diuresed very well, is being discharged home today Physical Exam Vital Signs: Temp Pulse Resp BP Pulse Ox 98.2 F 58 L 20 107/52 L 97 10/23/18 18:20 10/23/18 18:20 10/23/18 18:20 10/23/18 18:20 10/23/18 18:20 Intake & Output 10/22/18 10/23/18 10/24/18 06:59 06:59 06:59 Intake Total 250 Output Total 202 Balance 48 Weight 102.6 kg Results Laboratory Results: 10/22/18 14:48 10/22/18 14:48 10/22/18 14:48 NT-Pro-B Natriuret Pep 570 Qualifiers - * PATIENT BEING DISCHARGED WITH ANY OF THE FOLLOWING DIAGNOSIS: No VTE patient discharged on overlapping Therapy?: No Reason(s) for not prescribing Overlap Therapy:: Not indicated Stroke Pt being discharged on Anti-thrombolytic therapy?: No Reason(s) for not prescribing Anti-thrombolytic therapy:: Not indicated Stroke Pt being discharged on Anti-coagulation therapy?: No Reason(s) for not prescribing Anti-coagulation therapy:: Not indicated Stroke Pt being discharged on Statins?: No Reason(s) for not prescribing Statins therapy:: Not indicated [place] Pt being discharged on Aspirin therapy?: No Reason(s) for not prescribing Aspirin therapy:: Not indicated [place] Pt being discharged on Statins?: No Reason(s) for not prescribing Statin therapy:: Not indicated [place] Pt discharged ACEI/ARBS?: No Reason(s) for not prescribing ACEI/ARBS:: Not indicated Acute Heart Failure - Is this a Heart Failure Patient?: No
== END 2018-10-23 18:41 | disposition home or self-care (01) ==
LOC: 3W 13:13
PROVIDERS: ADMIT Internal Medicine; ATTEND Internal Medicine
DX: R60.1 Generalized edema (principal); K70.31 Alcoholic cirrhosis of liver with ascites; I10 Essential (primary) hypertension; F17.210 Nicotine dependence, cigarettes, uncomplicated; Z79.899 Other long term (current) drug therapy
CPT/HCPCS: 36415; 84439; 84156; 84443; 82570; 85025; 80076; 80048; 81001; 83880; 93306; G0378 ×2; G0379; J1940 ×2; J7050 ×2

== ENCOUNTER 2019-06-04 06:12 | Emergency (ER) | payer SELFPAY ==
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
[2019-06-04] MEDS ORDERED: IPRATROPIUM/ALBUTEROL 0.5-2.5 MG/3 ML AMPUL NEB ONE (06:45)
[2019-06-04] MEDS ORDERED: METHYLPREDNISOLONE INJ 125 MG/2 ML SDV IV ONE (06:45)
--- NOTE | 2019-06-04 07:28 | RADIOLOGY REPORT (SQ) ---
EXAM DESCRIPTION: XR CHEST 1 VIEW COMPLETED DATE/TME: 06/04/2019 06:45 CLINICAL HISTORY: 59 years Male, cough COMPARISON:Jul 11 2017 NUMBER OF VIEWS/TECHNIQUE: 1/AP FINDINGS: Adequate lung volume, clear parenchyma, normal cardiac silhouette, and intact bony thorax.Atherosclerotic vascular disease. IMPRESSION: No acute cardiopulmonary findings.
[2019-06-04 07:35] LABS: ABSOLUTE EOSINOPHILS # (AUTO) 0.1 10^3/uL (0.0-0.6); ABSOLUTE MONOCYTES (AUTO) 0.7 10^3/uL (0.1-1.4); ABSOLUTE NEUT (AUTO) 3.5 10^3/uL (1.7-8.2); ALBUMIN 3.3 g/dL (3.5-5.0); ALKALINE PHOSPHATASE 153 U/L (38-126); ANION GAP 6 (5-19); ASPARTATE AMINO TRANSFERASE 55 U/L (17-59); BASOPHILS % (AUTO) 0.3 % (0-2); BILIRUBIN,DIRECT 1.4 mg/dL (0.0-0.4); BLOOD UREA NITROGEN 17 mg/dL (7-20); CALCIUM 8.7 mg/dL (8.4-10.2); CARBON DIOXIDE 28 mmol/L (22-30); CHLORIDE 99 mmol/L (98-107); EOSINOPHILS % (AUTO) 1.7 % (0-6); GLUCOSE 106 mg/dL (75-110); HEMATOCRIT 32.1 % (37.9-51.0); HEMOGLOBIN 11.8 g/dL (13.5-17.0); MEAN CORPUSCULAR HEMOGLOBIN 38.8 pg (27.0-33.4); MEAN CORPUSCULAR HGB CONC 36.7 g/dL (32.0-36.0); MEAN CORPUSCULAR VOLUME 106 fl (80-97); MONOCYTES % (AUTO) 13.9 % (3-13); PLATELET COUNT 101 10^3/uL (150-450); POTASSIUM 3.9 mmol/L (3.6-5.0); RED BLOOD COUNT 3.04 10^6/uL (4.35-5.55); RED CELL DISTRIBUTION WIDTH 13.8 % (11.5-14.0); SEGMENTED NEUTROPHILS % (AUTO) 66.1 % (42-78); TOTAL CELLS COUNTED % (AUTO) 100 %; TOTAL PROTEIN 7.7 g/dL (6.3-8.2); WHITE BLOOD COUNT 5.3 10^3/uL (4.0-10.5)
[2019-06-04 07:47] LABS: NT PRO BNP 478 pg/mL (<125)
[2019-06-04 07:54] LABS: TROPONIN I < 0.012 ng/mL
[2019-06-04 09:19] LABS: A TYPE INFLUENZA AG NEGATIVE (NEGATIVE); B INFLUENZA AG NEGATIVE (NEGATIVE)
[2019-06-04 09:56] VITALS: BP 135/68
--- NOTE | 2019-06-04 17:01 | EKG REPORT ---
SEVERITY:- NORMAL ECG - SINUS RHYTHM : Confirmed by: Rosa Arreguin MD 04-Jun-2019 17:01:15
== END 2019-06-04 10:05 | disposition home or self-care (01) ==
LOC: ER 06:12
DX: B34.9 Viral infection, unspecified (principal); R05 Cough; R06.02 Shortness of breath; E80.6 Other disorders of bilirubin metabolism; F17.210 Nicotine dependence, cigarettes, uncomplicated; I50.9 Heart failure, unspecified; I11.0 Hypertensive heart disease with heart failure; J44.9 Chronic obstructive pulmonary disease, unspecified; Z86.19 Personal history of other infectious and parasitic diseases
CPT/HCPCS: 93005; 94640; 99285; 96374; 36415; 87040; 82553; 83605; 85025; 80053; 84484; 87804; 83880; 71045; 93010; J2930; J7620

== ENCOUNTER 2019-06-20 10:15 | Inpatient (IN) | payer SELFPAY ==
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
[2019-06-20 12:06] LABS: ABSOLUTE EOSINOPHILS # (AUTO) 0.1 10^3/uL (0.0-0.6); ABSOLUTE LYMPHOCYTES (AUTO) 0.9 10^3/uL (0.5-4.7); ABSOLUTE MONOCYTES (AUTO) 0.9 10^3/uL (0.1-1.4); ABSOLUTE NEUT (AUTO) 4.2 10^3/uL (1.7-8.2); BASOPHILS % (AUTO) 0.3 % (0-2); EOSINOPHILS % (AUTO) 1.8 % (0-6); HEMATOCRIT 30.8 % (37.9-51.0); HEMOGLOBIN 11.3 g/dL (13.5-17.0); MEAN CORPUSCULAR HEMOGLOBIN 38.8 pg (27.0-33.4); MEAN CORPUSCULAR HGB CONC 36.9 g/dL (32.0-36.0); MEAN CORPUSCULAR VOLUME 105 fl (80-97); MONOCYTES % (AUTO) 15.4 % (3-13); PLATELET COUNT 106 10^3/uL (150-450); RED BLOOD COUNT 2.92 10^6/uL (4.35-5.55); RED CELL DISTRIBUTION WIDTH 14.3 % (11.5-14.0); SEGMENTED NEUTROPHILS % (AUTO) 68.5 % (42-78); TOTAL CELLS COUNTED % (AUTO) 100 %; WHITE BLOOD COUNT 6.1 10^3/uL (4.0-10.5)
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
--- NOTE | 2019-06-20 12:16 | RADIOLOGY REPORT (SQ) ---
EXAM DESCRIPTION: CHEST 2 VIEWS COMPLETED DATE/TIME: 06/20/2019 11:55 am REASON FOR STUDY: shortness of breath COMPARISON: 06/04/2019 EXAM PARAMETERS: NUMBER OF VIEWS: two views TECHNIQUE: Digital Frontal and Lateral radiographic views of the chest acquired. RADIATION DOSE: NA LIMITATIONS: none FINDINGS: LUNGS AND PLEURA: No opacities, masses or pneumothorax. No pleural effusion. MEDIASTINUM AND HILAR STRUCTURES: No masses or contour abnormalities. HEART AND VASCULAR STRUCTURES: Heart normal size. No evidence for failure. BONES: No acute findings. HARDWARE: None in the chest. OTHER: No other significant finding. IMPRESSION: NO ACUTE RADIOGRAPHIC FINDING IN THE CHEST. TECHNICAL DOCUMENTATION: JOB ID: [id number] 2010 [employer]- All Rights Reserved Reading location - IP/workstation name: [email or web address]
[2019-06-20 12:17] LABS: INTERNATIONAL RATION (INR) 1.27; PROTHROMBIN TIME 15.9 SEC (11.4-15.4)
[2019-06-20 12:24] LABS: ALBUMIN 3.4 g/dL (3.5-5.0); ALKALINE PHOSPHATASE 159 U/L (38-126); ANION GAP 7 (5-19); ASPARTATE AMINO TRANSFERASE 72 U/L (17-59); BILIRUBIN,DIRECT 2.7 mg/dL (0.0-0.4); BILIRUBIN,TOTAL 6.5 mg/dL (0.2-1.3); BLOOD UREA NITROGEN 19 mg/dL (7-20); CALCIUM 8.9 mg/dL (8.4-10.2); CARBON DIOXIDE 29 mmol/L (22-30); CHLORIDE 97 mmol/L (98-107); GLUCOSE 84 mg/dL (75-110); POTASSIUM 4.2 mmol/L (3.6-5.0); TOTAL PROTEIN 7.7 g/dL (6.3-8.2)
[2019-06-20 12:36] LABS: NT PRO BNP 1130 pg/mL (<125)
[2019-06-20 12:37] LABS: TROPONIN I < 0.012 ng/mL
--- NOTE | 2019-06-20 14:00 | RADIOLOGY REPORT (SQ) ---
EXAM DESCRIPTION: CT ABD/PELVIS WITH IV ONLY COMPLETED DATE/TIME: 06/20/2019 1:19 pm REASON FOR STUDY: abd pain/jaundice COMPARISON: CT chest 07/11/2017 CT abdomen pelvis 11/13/2014, 10/08/2013 TECHNIQUE: CT scan of the abdomen and pelvis performed using helical scanning technique with dynamic intravenous contrast injection. No oral contrast. Images reviewed with lung, soft tissue, and bone windows. Reconstructed coronal and sagittal MPR images reviewed. Delayed images for evaluation of the urinary system also acquired. All images stored on PACS. All CT scanners at this facility use dose modulation, iterative reconstruction, and/or weight based d osing when appropriate to reduce radiation dose to as low as reasonably achievable (ALARA). [facility]: Dose Right [facility]: CareDose [facility]: Dose Right [facility]: Teradose 4D [facility]: HypeSpark CONTRAST TYPE AND DOSE: contrast/concentration: Isovue 350.00 mg/ml; Total Contrast Delivered: 99.0 ml; Total Saline Delivered: 70.0 ml RENAL FUNCTION: Creatinine 1.0 RADIATION DOSE: CT Rad equipment meets quality standard of care and radiation dose reduction techniq ues were employed. CTDIvol: 17.2 - 19.1 mGy. DLP: 1979 mGy-cm.. LIMITATIONS: None. FINDINGS: The patient has cirrhosis and portal hypertension. Nodular liver with recannulized umbili eusebia vein. Incompletely occlusive clot is present in the right portal vein extending into the main po rtal vein, best shown on axial images 17-21. There is a small amount of ascites in the abdomen and p jazmin. Spleen is 17 cm in greatest length with prominent vessels at the hilum. In the posterior right lobe liver, a 12 x 10 cm heterogeneously enhancing mass is present worrisome f or primary hepatocellular neoplasm. There is adenopathy in the retroperitoneum worrisome for metasta tic disease as follows: 2 x 1.7 cm right para coronal lymph node axial image 24 2 x 1.3 cm pericaval lymph node axial image 27 3 x 1.6 cm aortocaval lymph node axial image 30 2 x 1.7 cm aortocaval lymph node axial image 42 LOWER CHEST: Several less than 5 mm smooth round nodules are present at the right lung base worrisome for metastatic disease. LIVER: As above. Cirrhosis, portal hypertension, 12 x 10 cm mass posterior right lobe liver worrisom e for hepatocellular carcinoma. Incompletely occlusive clot in the right and main portal vein SPLEEN: 17 cm in length PANCREAS: No masses. No significant calcifications. No adjacent inflammation or peripancreatic fluid collections. Pancreatic duct not dilated. GALLBLADDER: Contracted around multiple stones. ADRENAL GLANDS: No significant masses or asymmetry. RIGHT KIDNEY AND URETER: No solid masses. No significant calcifications. No hydronephrosis or hyd roureter. LEFT KIDNEY AND URETER: No solid masses. No significant calcifications. No hydronephrosis or hydr oureter. AORTA AND VESSELS: No aneurysm. No dissection. Renal arteries, SMA, celiac without stenosis. RETROPERITONEUM: No retroperitoneal adenopathy, hemorrhage or masses. BOWEL AND PERITONEAL CAVITY: Small amount of ascites in the abdomen and pelvis. No evidence of bowel obstruction. APPENDIX: Normal. PELVIS: Small amount of free fluid. Bladder unremarkable ABDOMINAL WALL: Umbilical hernia containing mesenteric fat and mesenteric vessels BONES: No significant or acute findings. OTHER: No other significant finding. IMPRESSION: Cirrhosis with portal hypertension, splenomegaly, small amount of ascites Incompletely occlusive clot in the right and main portal vein 12 x 10 cm right lobe liver mass worrisome for hepatocellular carcinoma TECHNICAL DOCUMENTATION: JOB ID: [id number] Quality ID # [id number]: Final reports with documentation of one or more dose reduction techniques (e.g., Au tomated exposure control, adjustment of the mA and/or kV according to patient size, use of iterative reconstruction technique) 2010 [employer]- All Rights Reserved Reading location - IP/workstation name: [email or web address]
--- NOTE | 2019-06-20 19:01 | EKG REPORT ---
SEVERITY:- BORDERLINE ECG - SINUS RHYTHM PROBABLE LEFT ATRIAL ABNORMALITY : Confirmed by: Nadir Esquivel 20-Jun-2019 19:01:08
[2019-06-20] MEDS ORDERED: TRAMADOL HCL 50 MG TABLET PO PRN (20:18)
[2019-06-20] MEDS ORDERED: ALBUTEROL SULFATE HFA (90 MCG/PUFF) 8 GM MDI (1 MDI/ER DISP) IH PRN (20:18)
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
[2019-06-20 20:30] LABS: INTERNATIONAL RATION (INR) 1.33; PROTHROMBIN TIME 16.6 SEC (11.4-15.4)
[2019-06-20] MEDS ORDERED: (PENDING PHARMACY ID) (Spironolactone [Aldactone] 50 MG) PO SCH (20:30)
[2019-06-20 20:31] LABS: PARTIAL THROMBOPLASTIN TIME 32.7 SEC (23.5-35.8)
[2019-06-20] MEDS ORDERED: ALBUTEROL SULFATE HFA (90 MCG/PUFF) 8 GM MDI IH PRN (20:39)
[2019-06-20 20:53] LABS: CREATINE KINASE MB 0.24 ng/mL (<4.55)
[2019-06-20 20:54] LABS: TROPONIN I < 0.012 ng/mL
[2019-06-20 21:08] LABS: FREE T4 (FREE THYROXINE) 1.73 ng/dL (0.78-2.19)
[2019-06-20 21:22] LABS: THYROID STIMULATING HORMONE 4.51 uIU/mL (0.47-4.68)
[2019-06-20] MEDS: FOLIC ACID 1 MG TABLET PO SCH (21:29)
[2019-06-20] MEDS: NADOLOL 40 MG TABLET PO SCH (21:29)
[2019-06-20] MEDS: SPIRONOLACTONE 25 MG TABLET PO SCH (21:31)
[2019-06-20] MEDS: FUROSEMIDE 40 MG TABLET PO SCH (21:32)
[2019-06-21 02:47] LABS: CREATINE KINASE MB < 0.22 ng/mL (<4.55); TROPONIN I < 0.012 ng/mL
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
[2019-06-21 08:38] LABS: ABSOLUTE EOSINOPHILS # (AUTO) 0.1 10^3/uL (0.0-0.6); ABSOLUTE LYMPHOCYTES (AUTO) 0.9 10^3/uL (0.5-4.7); ABSOLUTE MONOCYTES (AUTO) 0.7 10^3/uL (0.1-1.4); ABSOLUTE NEUT (AUTO) 3.3 10^3/uL (1.7-8.2); BASOPHILS % (AUTO) 0.3 % (0-2); HEMATOCRIT 27.4 % (37.9-51.0); HEMOGLOBIN 10.1 g/dL (13.5-17.0); LYMPHOCYTES % (AUTO) 17.9 % (13-45); MEAN CORPUSCULAR HGB CONC 36.8 g/dL (32.0-36.0); MEAN CORPUSCULAR VOLUME 106 fl (80-97); MONOCYTES % (AUTO) 14.3 % (3-13); PLATELET COUNT 100 10^3/uL (150-450); RED BLOOD COUNT 2.59 10^6/uL (4.35-5.55); RED CELL DISTRIBUTION WIDTH 14.9 % (11.5-14.0); SEGMENTED NEUTROPHILS % (AUTO) 65.5 % (42-78); TOTAL CELLS COUNTED % (AUTO) 100 %
[2019-06-21 09:19] LABS: ALBUMIN 2.9 g/dL (3.5-5.0); ALKALINE PHOSPHATASE 135 U/L (38-126); ANION GAP 9 (5-19); ASPARTATE AMINO TRANSFERASE 67 U/L (17-59); BILIRUBIN,DIRECT 2.7 mg/dL (0.0-0.4); BILIRUBIN,TOTAL 6.1 mg/dL (0.2-1.3); BLOOD UREA NITROGEN 22 mg/dL (7-20); CALCIUM 8.6 mg/dL (8.4-10.2); CARBON DIOXIDE 27 mmol/L (22-30); CHLORIDE 97 mmol/L (98-107); GLUCOSE 89 mg/dL (75-110); POTASSIUM 4.4 mmol/L (3.6-5.0); TOTAL PROTEIN 7.3 g/dL (6.3-8.2)
[2019-06-21 09:26] LABS: CREATINE KINASE MB < 0.22 ng/mL (<4.55); TROPONIN I < 0.012 ng/mL
[2019-06-21] MEDS: FUROSEMIDE 40 MG TABLET PO SCH (09:31)
[2019-06-21] MEDS: NADOLOL 40 MG TABLET PO SCH (09:31)
[2019-06-21] MEDS: FOLIC ACID 1 MG TABLET PO SCH (09:31)
[2019-06-21] MEDS: SPIRONOLACTONE 25 MG TABLET PO SCH (09:31)
--- NOTE | 2019-06-21 13:04 | PDOC DISCHARGE SUMMARY ---
Impression - Admit/DC Date/PCP Admission Date/Primary Care Provider: 06/20/19 15:07 KWAKU CUELLO MD Discharge Date: 06/21/19 - Discharge Diagnosis (1) Hepatocellular carcinoma Is this a current diagnosis for this admission?: Yes (2) Portal vein thrombosis Is this a current diagnosis for this admission?: Yes (3) Alcoholic cirrhosis of liver Is this a current diagnosis for this admission?: Yes - Additional Information Resuscitation Status: Full Code Referrals: DEQUAN OCHOA MD [ACTIVE STAFF] - 07/08/19 10:15 am KWAKU CUELLO MD [Primary Care Provider] - 07/02/19 10:45 am Home Medications: Folic Acid [Folvite 1 mg Tablet] 1 mg PO DAILY 07/11/17 Furosemide [Lasix 40 mg Tablet] 40 mg PO DAILY 07/11/17 Nadolol [Corgard 40 mg Tablet] 40 mg PO DAILY 07/11/17 Spironolactone [Aldactone] 50 mg PO BID 07/11/17 Ergocalciferol (Vitamin D2) [Drisdol 50,000 unit (1.25MG) Capsule] 50,000 unit PO WE@1000 10/12/17 Albuterol Sulfate [Proair HFA Inhalation Aerosol 8.5 gm MDI] 2 puff IH Q4H PRN 06/20/19 Tramadol HCl [Ultram 50 mg Tablet] 50 mg PO DAILYP PRN 06/20/19 History of Present Illiness History of Present Illness: SISSY RODGERS is a 59 year old male, He has a history of alcohol related liver cirrhosis, history of hepatitis C that was treated in the past, I am not sure if there is sustained virologic response to treatment, he has no medical insurance for many years, he has not been following up regularly outpatient because of lack of medical insurance. He came to the emergency room for evaluation of abdominal pain, he basically uses the emergency room for routine medical evaluation, he was in the emergency room previously was supposed to follow-up with us in the office he never did. In the emergency room he was evaluated CAT scan of the abdomen and pelvis was obtained with IV contrast, it demonstrated liver cirrhosis with portal hypertension there was occlusive clot in the right portal vein that extended into the main portal vein also found was a large mass that measure 12 cm x 10 cm in the right lobe of the liver which enhances contrast worrisome for primary hepatocellular carcinomaThere was associated lymphadenopathy suggesting metastatic disease Hospital Course Hospital Course: Patient was admitted yesterday with primary hepatocellular carcinoma, consultation was requested from interventional radiology for biopsy the radiologist stated that the CAT scan was diagnostic, biopsy was indicated. He was seen by oncology Dr. Ochoa, he will follow outpatient with Dr. Ochoa, the ascites was not large enough for paracentesis. He also have portal vein thrombosis, the tumor marker alpha fetoprotein results is pending. Physical Exam Vital Signs: Temp Pulse Resp BP Pulse Ox 97.7 F 55 L 18 100/50 L 96 06/21/19 08:14 06/21/19 08:14 06/21/19 08:14 06/21/19 08:14 06/21/19 08:14 Intake & Output 06/20/19 06/21/19 06/22/19 06:59 06:59 06:59 Output Total 0 Balance 0 Weight 102.1 kg General appearance: PRESENT: no acute distress Eye exam: PRESENT: PERRLA Respiratory exam: PRESENT: clear to auscultation samuel Cardiovascular exam: PRESENT: +S1, +S2 GI/Abdominal exam: PRESENT: soft Neurological exam: PRESENT: alert Results Laboratory Results: WBC 5.0 10^3/uL (4.0-10.5) 06/21/19 08:07 RBC 2.59 10^6/uL (4.35-5.55) L 06/21/19 08:07 Hgb 10.1 g/dL (13.5-17.0) L 06/21/19 08:07 Hct 27.4 % (37.9-51.0) L 06/21/19 08:07 MCV 106 fl (80-97) H 06/21/19 08:07 MCH 39.0 pg (27.0-33.4) H 06/21/19 08:07 MCHC 36.8 g/dL (32.0-36.0) H 06/21/19 08:07 RDW 14.9 % (11.5-14.0) H 06/21/19 08:07 Plt Count 100 10^3/uL (150-450) L 06/21/19 08:07 Lymph % (Auto) 17.9 % (13-45) 06/21/19 08:07 Pitkin % (Auto) 14.3 % (3-13) H 06/21/19 08:07 Eos % (Auto) 2.0 % (0-6) 06/21/19 08:07 Baso % (Auto) 0.3 % (0-2) 06/21/19 08:07 Absolute Neuts (auto) 3.3 10^3/uL (1.7-8.2) 06/21/19 08:07 Absolute Lymphs (auto) 0.9 10^3/uL (0.5-4.7) 06/21/19 08:07 Absolute Monos (auto) 0.7 10^3/uL (0.1-1.4) 06/21/19 08:07 Absolute Eos (auto) 0.1 10^3/uL (0.0-0.6) 06/21/19 08:07 Absolute Basos (auto) 0.0 10^3/uL (0.0-0.2) 06/21/19 08:07 Seg Neutrophils % 65.5 % (42-78) 06/21/19 08:07 PT 16.6 SEC (11.4-15.4) H 06/20/19 20:13 INR 1.33 06/20/19 20:13 APTT 32.7 SEC (23.5-35.8) 06/20/19 20:13 Sodium 132.9 mmol/L (137-145) L 06/21/19 08:07 Potassium 4.4 mmol/L (3.6-5.0) 06/21/19 08:07 Chloride 97 mmol/L (98-107) L 06/21/19 08:07 Carbon Dioxide 27 mmol/L (22-30) 06/21/19 08:07 Anion Gap 9 (5-19) 06/21/19 08:07 BUN 22 mg/dL (7-20) H 06/21/19 08:07 Creatinine 0.99 mg/dL (0.52-1.25) 06/21/19 08:07 Est GFR ( Amer) > 60 (>60) 06/21/19 08:07 Est GFR (MDRD) Non-Af > 60 (>60) 06/21/19 08:07 Glucose 89 mg/dL (75-110) 06/21/19 08:07 Calcium 8.6 mg/dL (8.4-10.2) 06/21/19 08:07 Magnesium 2.0 mg/dL (1.6-2.3) 06/20/19 20:13 Total Bilirubin 6.1 mg/dL (0.2-1.3) H 06/21/19 08:07 Direct Bilirubin 2.7 mg/dL (0.0-0.4) H 06/21/19 08:07 Neonat Total Bilirubin Not Reportable 06/21/19 08:07 Neonat Direct Bilirubin Not Reportable 06/21/19 08:07 Neonat Indirect Bili Not Reportable 06/21/19 08:07 AST 67 U/L (17-59) H 06/21/19 08:07 ALT 22 U/L (<50) 06/21/19 08:07 Alkaline Phosphatase 135 U/L (38-126) H 06/21/19 08:07 Ammonia < 8.7 umol/L (9-33) L 06/20/19 20:13 Creatine Kinase < 20 U/L (55-170) L 06/21/19 08:07 CK-MB (CK-2) < 0.22 ng/mL (<4.55) 06/21/19 08:07 Troponin I < 0.012 ng/mL 06/21/19 08:07 NT-Pro-B Natriuret Pep 1130 pg/mL (<125) H 06/20/19 11:40 Total Protein 7.3 g/dL (6.3-8.2) 06/21/19 08:07 Albumin 2.9 g/dL (3.5-5.0) L 06/21/19 08:07 Amylase 83 U/L (30-110) 06/20/19 20:13 TSH 4.51 uIU/mL (0.47-4.68) 06/20/19 20:13 Free T4 1.73 ng/dL (0.78-2.19) 06/20/19 20:13 06/20/19 06/20/19 06/21/19 11:40 20:13 01:59 CK-MB (CK-2) 0.24 < 0.22 Troponin I < 0.012 < 0.012 < 0.012 NT-Pro-B Natriuret Pep 1130 H 06/21/19 08:07 CK-MB (CK-2) < 0.22 Troponin I < 0.012 NT-Pro-B Natriuret Pep Impressions: Chest X-Ray 06/20/19 11:22 IMPRESSION: NO ACUTE RADIOGRAPHIC FINDING IN THE CHEST. Abdomen/Pelvis CT 06/20/19 12:45 IMPRESSION: Cirrhosis with portal hypertension, splenomegaly, small amount of ascites Incompletely occlusive clot in the right and main portal vein 12 x 10 cm right lobe liver mass worrisome for hepatocellular carcinoma Stroke Is this a Stroke Patient?: No Acute Heart Failure - Is this a Heart Failure Patient?: No
[2019-06-21 13:21] VITALS: BP 119/63
[2019-06-22 06:36] LABS: HEPATITS B SURFACE ANTIGEN Negative (Negative)
[2019-06-22 11:51] LABS: HEPATITIS C VIRUS ANTIBODY >11.0 s/co ratio (0.0-0.9)
[2019-06-26] MEDS ORDERED: ERGOCALCIFEROL (VITAMIN D2) 50000 UNIT (1.25 MG) CAPSULE PO SCH (10:00)
== END 2019-06-21 15:06 | disposition home or self-care (01) | DRG 435 ==
LOC: ER 10:15 → EH 15:07 → 3W 17:00
PROVIDERS: ADMIT Internal Medicine; ATTEND Internal Medicine
DX: C22.0 Liver cell carcinoma (principal); I81 Portal vein thrombosis; I10 Essential (primary) hypertension; F10.11 Alcohol abuse, in remission; J44.9 Chronic obstructive pulmonary disease, unspecified; K44.9 Diaphragmatic hernia without obstruction or gangrene; F17.200 Nicotine dependence, unspecified, uncomplicated; K70.31 Alcoholic cirrhosis of liver with ascites; R59.9 Enlarged lymph nodes, unspecified; I11.0 Hypertensive heart disease with heart failure; I50.9 Heart failure, unspecified; Z87.828 Personal history of other (healed) physical injury and trauma; Z79.51 Long term (current) use of inhaled steroids; Z59.7 Insufficient social insurance and welfare support; Z86.19 Personal history of other infectious and parasitic diseases
CPT/HCPCS: 36415; 71046; 74177; 80053; 80074; 82105; 82140; 82150; 82550; 82553; 83735; 83880; 84439; 84443; 84484; 85025; 85610; 85730; 93005; 93010; 99285; J3490